=== PATIENT | female | born 1955 | race Caucasian/White ===

== ENCOUNTER 2019-01-15 06:30 | Inpatient (IN) | payer OTHER ==
[2019-01-11 16:39] VITALS: BMI 31.5
[2019-01-15] MEDS ORDERED: SUCCINYLCHOLINE CHLORIDE 200 MG/10 ML VIAL ONE (07:09)
[2019-01-15] MEDS ORDERED: ROCURONIUM BROMIDE 50 MG/5 ML VIAL ONE (07:09)
[2019-01-15] MEDS ORDERED: PROPOFOL 20 ML ONE ×17 (07:09→10:47)
[2019-01-15] MEDS ORDERED: fentaNYL CITRATE 250 MCG/5 ML VIAL ONE (07:09)
[2019-01-15] MEDS ORDERED: HYDROmorphone HCl 2 MG/ML VIAL ONE (07:09)
[2019-01-15] MEDS ORDERED: MIDAZOLAM HCL 2 MG/2 ML SINGLE DOSE VIAL ONE ×2 (07:10→08:36)
[2019-01-15] MEDS ORDERED: ceFAZolin SODIUM 1 GM VIAL ONE ×2 (07:11→17:00)
[2019-01-15] MEDS ORDERED: TRANEXAMIC ACID 1000 MG/10 ML VIAL ONE (07:11)
[2019-01-15] MEDS ORDERED: VANCOMYCIN 1,000 MG VIAL (RESTRICTED TO ID ONLY) ONE (07:11)
[2019-01-15] MEDS ORDERED: ONDANSETRON 4 MG/2 ML VIAL ONE (07:11)
[2019-01-15] MEDS ORDERED: DEXAMETHASONE SOD PHOSPHATE 4 MG/1 ML VIAL ONE ×2 (07:11→08:31)
[2019-01-15] MEDS ORDERED: SODIUM CHLORIDE 0.9% P/F 10 ML VIAL IJ ONE (07:21)
[2019-01-15] MEDS ORDERED: HEPARIN NA (PORCINE) 5,000 UNITS/ML 1ML VIAL ONE (07:27)
[2019-01-15] MEDS ORDERED: BENZOIN TINCTURE SWABSTICK TP ONE (07:27)
[2019-01-15] MEDS ORDERED: THROMBIN (BOVINE) 5,000 UNIT VIAL TP ONE ×2 (07:28→10:11)
[2019-01-15] MEDS ORDERED: ceFAZolin 2 GRAM PREMIX BAG IVPB ONE ×2 (08:30→09:52)
[2019-01-15] MEDS ORDERED: VANCOMYCIN 1,000 MG VIAL (RESTRICTED TO ID ONLY) IVPB ONE ×2 (08:45→09:52)
[2019-01-15] MEDS ORDERED: GELATIN, ABSORBABLE 100 EACH SPONGE TP ONE (10:11)
[2019-01-15] MEDS ORDERED: NEOSTIGMINE METHYLSULFATE 0.5 MG/1 ML - 10 ML MDV ONE (11:18)
[2019-01-15] MEDS ORDERED: GLYCOPYRROLATE 0.2 MG/1 ML VIAL ONE (11:18)
[2019-01-15] MEDS ORDERED: METOPROLOL TARTRATE 5 MG/5 ML VIAL ONE (11:26)
[2019-01-15] MEDS ORDERED: LABETALOL HCL 5 MG/1 ML (100MG/20 ML VIAL) ONE (11:30)
--- NOTE | 2019-01-15 11:41 | PN ---
Progress Note (short form) - Note Progress Note: 63F s/p C3-C4, C4-C5 anterior cervical discectomy and instrumented fusion POD # 0. -Airway observation: In case of emergency, remove anterior cervical spine dressing and pull out running suture; ok to cut suture if needed to decompress hematoma. -Maintain head of bed 45-60 degrees. -Pain medication: per anaesthesia team; oral meds (oxycodone preferred), no ASSISTANT PRINTER FLOOR COVERING ; NO NSAID's. -Admit to ICU post-op. -DVT PPx: -Mechanical only: NIRAJ's, SCD's. -Post-op Ancef x 2 doses. -f/u AM labs. -Incentive spirometry. -PT/OT/Rehab, OOB. -WBAT B/L LE. -PWB B/L UE: 5lbs. -d/c Plunkett catheter at midnight; f/u TOV (8 hours max). -Keep dressing clean & dry. -No heavy lifting (>5 lbs), bending or twisting x 6 months post op. -Start with soft diet; advance diet as tolerated. -B/L UE & LE NV checks. -Care per ICU & Dr. Ramírez (covering medical hospitalist). -Discharge planning: f/u [facility] [place] office 01/26/2019; call for appointment; . Wang Medrano MD (Orthopaedic Surgery).
[2019-01-15] MEDS ORDERED: ONDANSETRON 4 MG/2 ML VIAL IVPUSH PRN ×2 (11:44→12:11)
[2019-01-15] MEDS ORDERED: oxyCODONE HCL 5 MG TABLET PO PRN (11:44)
--- NOTE | 2019-01-15 11:44 | OP ---
Operative Note - Note: Operative Date: 01/15/19 Pre-Operative Diagnosis: 1. C3-C4, C4-C5 intervertebral disc disorder with radiculopathy. 2. Multi-level cervical stenosis with myelopathy Operation: C3-C4, C4-C5 ACDF Implants: Cage: C3-C4 - Fortilink Tetrafuse #7. Cage: C4-C5 - Fortilink Tetrafuse #7. Plate: Precision Spine Slimplicity 27mm, 2-level. Screws: 5 x 4.0x12mm, 1 x 4.5x12mm Post-Operative Diagnosis: Same as Pre-op Surgeon: Wang Medrano Bridge Construction Inspector: Juan Medrano Anesthesiologist/RESEARCH AND DEVELOPMENT TESTER: Piotr Suh Anesthesia: General Specimens Removed: C3-C4, C4-C5 discs Estimated Blood Loss (mls): 20 Fluid Volume Replaced (mls): 1,000 (Crystalloid) Operative Report Dictated: Yes
[2019-01-15] MEDS ORDERED: LACTATED RINGERS SOLUTION 1,000 ML IV SCH ×2 (11:45→12:15)
[2019-01-15] MEDS ORDERED: CLONAZEPAM PO PRN (11:50)
[2019-01-15] MEDS ORDERED: clonazePAM 2 MG TABLET PO PRN (12:03)
[2019-01-15] MEDS ORDERED: clonazePAM 0.5 MG TABLET PO PRN (12:03)
[2019-01-15] MEDS ORDERED: PROMETHAZINE HCL 25 MG/1 ML VIAL IVPB PRN (12:11)
[2019-01-15] MEDS ORDERED: DEXAMETHASONE SOD PHOSPHATE 4 MG/1 ML VIAL IVPUSH PRN (12:11)
[2019-01-15] MEDS ORDERED: HYDROmorphone *PCA* 10MG/50ML DISP.SYRIN PCA SCH (12:15)
--- NOTE | 2019-01-15 14:22 | CONSULT ---
Consultation: REQUESTING PROVIDER: Dr. Medrano CONSULT REQUEST: We have been asked to medically evaluate this patient for ( specify). HISTORY OF PRESENT ILLNESS: 63 y/o female with PMH of HTN, HLD, asthma, psych history, intervertebral disc disorder is POD #0 from c3-c4, c4-5 anterior cervical discectomy and instrumented fusion. per patients family who are bedside, patient has been having worsening neck pain, headaches with associated numbness/tingling (mainly in the left arm) that had been occurring for the past few years but had been getting worse over the past couple of months. She had received multiple steroid injections in the past but this was her first surgical procedure. REVIEW OF SYSTEMS: (limited as patient is still recovering lethargic from anesthesia) CONSTITUTIONAL: Absent: fever, chills, diaphoresis, generalized weakness, malaise, loss of appetite, weight change HEENT: Absent: rhinorrhea, nasal congestion, throat pain, throat swelling, difficulty swallowing, mouth swelling, ear pain, eye pain, visual changes CARDIOVASCULAR: Absent: chest pain, syncope, palpitations, irregular heart rate, lightheadedness , peripheral edema RESPIRATORY: Absent: cough, shortness of breath, dyspnea with exertion, orthopnea, wheezing, stridor, hemoptysis GASTROINTESTINAL: Absent: abdominal pain, abdominal distension, nausea, vomiting, diarrhea, constipation, melena, hematochezia GENITOURINARY: Absent: dysuria, frequency, urgency, hesitancy, hematuria, flank pain, genital pain MUSCULOSKELETAL: Present: neck pain (at surgical site) Absent: myalgia, arthralgia, joint swelling, back pain, SKIN: Absent: rash, itching, pallor HEMATOLOGIC/IMMUNOLOGIC: Absent: easy bleeding, easy bruising, lymphadenopathy, frequent infections ENDOCRINE: Absent: unexplained weight gain, unexplained weight loss, heat intolerance, cold intolerance NEUROLOGIC: Absent: headache, focal weakness or paresthesias, dizziness, unsteady gait, seizure, mental status changes, bladder or bowel incontinence PSYCHIATRIC: Absent: anxiety, depression, suicidal or homicidal ideation, hallucinations. PHYSICAL EXAMINATION Vital Signs - 24 hr 01/15/19 01/15/19 01/15/19 07:06 07:07 12:05 Temperature 98.2 F 97.6 F Pulse Rate 80 83 Respiratory 20 14 Rate Blood Pressure 106/72 145/80 O2 Sat by Pulse 98 92 L Oximetry (%) 01/15/19 01/15/19 01/15/19 12:11 12:20 12:35 Temperature 97.6 F 97.8 F 97.6 F Pulse Rate 83 76 78 Respiratory 14 14 14 Rate Blood Pressure 145/80 131/81 136/79 O2 Sat by Pulse 94 L 94 L 94 L Oximetry (%) 01/15/19 01/15/19 12:49 14:08 Temperature 97.3 F L Pulse Rate 80 85 Respiratory 14 16 Rate Blood Pressure 139/87 126/85 O2 Sat by Pulse 94 L Oximetry (%) GENERAL: slightly somnolent; however opens her eyes; slightly moaning in pain EYES: Pupils equal, round and reactive to light, extraocular movements intact, sclera anicteric, conjunctiva clear. No lid lag. NECK: no JVD; no lymphadenopathy LUNGS: CTA B/L; no rales, rhonchi or wheezing HEART: Regular rate and rhythm, normal S1 and S2 without murmur, rub or gallop. ABDOMEN: Soft, no wincing upon palpation; nondistended ; +BS in all 4 quadrants MUSCULOSKELETAL: Normal range of motion at all joints. No bony deformities or tenderness. No CVA tenderness. UPPER EXTREMITIES: 2+ pulses, warm, well-perfused. No cyanosis. No clubbing. Cap refill <2 seconds. No peripheral edema. LOWER EXTREMITIES: 2+ pulses, warm, well-perfused. No calf tenderness. No peripheral edema. NEUROLOGICAL: Cranial nerves II-XII intact. Normal speech. Normal gait. PSYCHIATRIC: Cooperative. Good eye contact. Appropriate mood and affect. SKIN: Warm, dry, normal turgor, no rashes or lesions noted. Laboratory Results - last 24 hr 01/15/19 06:46 Blood Type B POSITIVE Antibody Screen Negative Active Medications Generic Name Dose Route Start Last Admin Trade Name Freq PRN Reason Stop Dose Admin Albuterol Sulfate 1 puff 01/16/19 10:00 Ventolin Hfa Inhaler - IH Q4H PRN SHORTNESS OF BREATH Atorvastatin Calcium 10 mg 01/15/19 22:00 Lipitor - PO HS DYLAN Clonazepam 1 mg 01/15/19 12:03 Klonopin - PO Q24H PRN DEPRESSION Clonazepam 2 mg 01/15/19 12:03 Klonopin - PO Q24H PRN DEPRESSION Dexamethasone Sodium Phosphate 4 mg 01/15/19 12:11 Decadron Injection - IVPUSH ONCE PRN NAUSEA AND/OR VOMITING Diphenhydramine HCl 12.5 mg 01/15/19 12:11 Benadryl Injection - IVPUSH ONCE PRN FOR ITCHING Fentanyl 50 mcg 01/15/19 12:11 01/15/19 13:47 Sublimaze Injection - IVPUSH 01/16/19 12:10 50 mcg [id number] PRN Administration PAIN-PACU ORDER X 4 DOSES ONLY Cefazolin Sodium 1 gm in 50 mls @ 100 mls/hr 01/15/19 17:00 Ancef 1 Gm Premixed Ivpb - IVPB 01/16/19 01:29 Q8H DYLAN Lactated Ringer's 1,000 mls @ 125 mls/hr 01/15/19 12:15 01/15/19 13:47 Lactated Ringers Solution IV 125 mls/hr ASDIR DYLAN Administration Lisinopril 10 mg 01/16/19 10:00 Prinivil PO DAILY [facility] Non-Formulary Medication 1 each 01/16/19 10:00 Fluticasone/Vilanterol [Breo Ellipta 100-25 Mcg Inh] IH DAILY [facility] Non-Formulary Medication 1 each 01/15/19 22:00 Lifitegrast [Xiidra] OU BID [facility] Ondansetron HCl 4 mg 01/15/19 11:44 Zofran Injection IVPUSH Q6H PRN NAUSEA AND/OR VOMITING Ondansetron HCl 4 mg 01/15/19 12:11 Zofran Injection IVPUSH Q4H PRN NAUSEA AND/OR VOMITING Oxycodone HCl 5 mg 01/15/19 11:44 Roxicodone - PO Q4H PRN PAIN LEVEL 1-5 Oxycodone HCl 10 mg 01/15/19 11:44 Roxicodone - PO Q4H PRN PAIN LEVEL 6-10 Prednisolone Acetate 1 drop 01/16/19 10:00 Pred Forte 1% - OU BID DYLAN Promethazine HCl 12.5 mg 01/15/19 12:11 Phenergan Injection - IVPB 01/16/19 12:10 Q6H PRN NAUSEA AND/OR VOMITING Ranitidine HCl 150 mg 01/15/19 22:00 Zantac - PO HS DYLAN Sertraline HCl 100 mg 01/16/19 10:00 Zoloft - PO DAILY DYLAN Tizanidine HCl 4 mg 01/15/19 22:00 Tizanidine Hcl PO HS DYLAN Tizanidine HCl 2 mg 01/15/19 22:00 Tizanidine Hcl PO BID DYLAN Zolpidem Tartrate 10 mg 01/15/19 22:00 Ambien - PO HS PRN INSOMNIA ASSESSMENT/PLAN: 63 y.o female with PMH of HTN, HLD, asthma, intervertebral disc disorder, psychiatric history is POD #0 from c3-c4, c4-c5 anterior cervical discectomy with instrumented fusion #POD #0 C3-C4, C4-C5 anterior cervical discectomy with instrumented fusion -EBL 20; 1000L crystalloid replacement -fentanyl X4 doses -oxycodone 10mg and 5mg Q4H PRN (AVOID NSAIDS) -Zofran PRN for nausea -Lr @125mls/hr -incentive spirometer -ancef post op X2 doses -SCD's for DVT prophylaxis -remove gorman catheter at midnight -monitor vitals/hemodynamics/pain scale #Cardio HTN; HLD -lisinopril 10mg daily -lipitor 10mg HS #Pulmonary asthma history -albuterol Q4 PRN -restart patients breo/ellipta inhaler -monitor o2 sats #Psych -c/w zoloft 100mg daily -ambien 10mg HS for insomnia F/E/N LR @125mls/hr monitor electrolytes soft diet DVT PPX; SCD's/TEDS Dispo: We will continue to follow the patient. Thank you for this consultative opportunity. Problem List - Problems (1) Asthma Code(s): J45.909 - UNSPECIFIED ASTHMA, UNCOMPLICATED (2) HTN (hypertension) Code(s): I10 - ESSENTIAL (PRIMARY) HYPERTENSION (3) S/P discectomy Code(s): Z98.890 - OTHER SPECIFIED POSTPROCEDURAL STATES Visit type - Emergency Visit Emergency Visit: Yes ED Registration Date: 01/15/19 Care time: The patient presented to the Emergency Department on the above date and was hospitalized for further evaluation of their emergent condition. - New Patient This patient is new to me today: No - Critical Care Critical Care patient: Yes Total Critical Care Time (in minutes): 35 Critical Care Statement: The care of this patient involved high complexity decision making to prevent further life threatening deterioration of the patient 's condition and/or to evaluate & treat vital organ system(s) failure or risk of failure.
[2019-01-15] MEDS: oxyCODONE HCL 5 MG TABLET PO PRN ×2 (16:40→20:20)
[2019-01-15] MEDS ORDERED: CEFAZOLIN 1 GM/D5W 1 GM/50 ML BAG IVPB SCH (17:00)
[2019-01-15] MEDS ORDERED: DEXTROSE 5%-WATER - 50 ML IVPB ONE (17:00)
[2019-01-15] MEDS: CEFAZOLIN 1 GM in DEXTROSE 5%-WATER - 50 ML IVPB SCH (17:06)
--- NOTE | 2019-01-15 17:59 | HP ---
Admitting History and Physical - Admission Chief Complaint: neck pain History Source: Patient Limitations to Obtaining History: No Limitations - Past Medical History DUST MIXER: No: Alzheimer's, CVA, Dementia, Migraine, Multiple Sclerosis, Peripheral Neuropathy, Parkinson's, Seizure, Syncope, TIA, Vertigo, Other Cardiovascular: Yes: HTN Pulmonary: Yes: Asthma, COPD Gastrointestinal: No: Ascites, Cancer, Constipation, Crohn's Disease, Diverticulitis, Diverticulosis, Esophageal Varices, Gastritis, GERD, GI Bleed, Hemorrhoids, Hiatal Hernia, Inflamatory Bowel Disease, Irritable Bowel Disease, Pancreatitis, Peptic Ulcer Disease, Ulcerative Colitis, Other Hepatobiliary: No: Cirrhosis, Cholelithiasis, Cholecystitis, Choledocholithiasis , Hepatitis A, Hepatitis B, Hepatitis C, Other Renal/: No: Renal Failure, Renal Inusuff, BPH, Cancer, Hematuria, Hemodialysis , Neurogenic Bladder, Renal Calculi, UTI, Other Reproductive: No: Ectopic , Endometriosis, Fibroids, PID, Polycystic Ovary Syndrome, Postmenopausal, Other ...: No Heme/Onc: No: Anemia, B12 Deficiency, Bleeding Disorder, Cancer, Current Chemotherapy, Current Radiation Therapy, Hemochromatosis, Hypercoaguable State, Myeloproliferative Synd, Sickle Cell Disease, Sickle Cell Trait, Thrombocytopenia, Other Infectious Disease: No: AIDS, C-Diff, Herpes Zoster, HIV, MRSA, STD's, Tuberculosis, VREF, Other Psych: Yes: Depression Musculoskeletal: Yes: Other (neck pain) Rheumatology: No: Fibromyalgia, Gout, Lupus, Rheumatoid Arthritis, Sarcoidosis, Vasculitis, Other ENT: No: Allergic Rhinitis, Sinusitis, Other Endocrine: No: Dilan's Disease, Malaika's Disease, Diabetes Insipidus, Diabetes Mellitus, Hyperparathyroidism, Hyperthyroidism, Hypothyroidism, Osteopenia, SIADH, Other Dermatology: No: Basal Cell, Cellulitis, Eczema, Melanoma, Psoriasis, Squamous Cell, Other - Past Surgical History Past Surgical History: No: None, AAA Repair, AICD, Amputation, Appendectomy, Arthrosocopy, AV Fistula/Graft, Bariatric Surgery, Breast Biopsy, Bypass, CABG, Carotid Endarterectomy, Cataract Removal, Cholecystectomy, Colectomy, Colonoscopy, Colostomy, Craniotomy, , Cystectomy, Hernia Repair, Hysterectomy, Ileal Conduit, Ileosotomy, Joint Replacement, Kidney Transplant, Laminectomy, Liver Transplant, Mastectomy, Nephrectomy, Oopherectomy, Orchiectomy, Permanent Pacemaker, Prostatectomy, Splenectomy, Stent, Thoracotomy , TURP, Tonsillectomy, Tubal Ligation, Upper Endoscopy, Valve Replacement, Vasectomy, Vein Stripping/Ligation - Advance Directives Advance Directives: No: Living Will, Health Care Proxy, DNR, Organ Donor, Tissue Donor, MOLST - Smoking History Smoking history: Former smoker Have you smoked in the past 12 months: No If you are a former smoker, when did you quit?: 2008 - Alcohol/Substance Use Hx Alcohol Use: No History of Substance Use: denies: None, Cocaine, Heroin, Marijuana, Prescription , Tranquilizers - Social History ADL: Independent Home Medications - Allergies Allergies/Adverse Reactions: Allergies Allergy/AdvReac Type Severity Reaction Status Date / Time No Known Drug Allergies Allergy Verified 01/15/19 07:23 - Home Medications Home Medications: Ambulatory Orders Albuterol Sulfate Inhaler - [Ventolin Hfa Inhaler -] 1 puff IH DAILY 01/11/19 Clonazepam 1 - 2 mg PO PRN PRN 01/11/19 Fluticasone/Vilanterol [Breo Ellipta 100-25 Mcg INH] 1 each IH DAILY 01/11/19 Gabapentin 100 mg PO HS 01/11/19 Hydrocodone/Acetaminophen [Vicodin 5-300 mg Tablet] 1 each PO BID 01/11/19 Lifitegrast [Xiidra] 1 each OU BID 01/11/19 Pravastatin Sodium [Pravachol (Nf)] 40 mg PO HS 01/11/19 Prednisolone 1% Ophthalmic [Pred Forte 1% -] 1 ml OU DAILY 01/11/19 Pregabalin [Lyrica] 100 mg PO DAILY 01/11/19 Ranitidine [Zantac -] 150 mg PO HS 01/11/19 Sennosides [Senna] 2 tab PO DAILY 01/11/19 Sertraline HCl [Zoloft] 100 mg PO DAILY 01/11/19 Tizanidine HCl 4 mg PO HS 01/11/19 Zolpidem Tartrate [Ambien] 10 mg PO HS 01/11/19 Lisinopril 10 mg PO DAILY 01/15/19 Family Disease History - Family Disease History Family Disease History: Diabetes: Mother (HTN), Heart Disease: Grandparent (HI) , Brother (HI), Other: Mother Review of Systems - Review of Systems Constitutional: reports: No Symptoms Eyes: reports: No Symptoms HENT: reports: No Symptoms Neck: reports: No Symptoms, Decreased ROM, Pain on Movement, Tenderness Cardiovascular: reports: No Symptoms Respiratory: reports: No Symptoms Gastrointestinal: reports: No Symptoms Genitourinary: reports: No Symptoms Breasts: reports: No Symptoms Reported Musculoskeletal: reports: No Symptoms Integumentary: reports: No Symptoms Neurological: reports: No Symptoms Endocrine: reports: No Symptoms Hematology/Lymphatic: reports: No Symptoms Psychiatric: reports: No Symptoms, Anxiety, Depression Pain Intensity: 8 Physical Examination Vital Signs: Vital Signs Temperature 97.3 F L 01/15/19 12:49 Pulse Rate 94 H 01/15/19 16:18 Respiratory Rate 16 01/15/19 16:18 Blood Pressure 140/91 01/15/19 16:18 O2 Sat by Pulse Oximetry (%) 94 L 01/15/19 12:49 Findings/Remarks: obese lady in bed. NAD. C/O back pain Constitutional: Yes: Well Nourished, No Distress Eyes: Yes: WNL HENT: Yes: WNL Neck: Yes: Decreased ROM, Tenderness Cardiovascular: Yes: WNL Respiratory: Yes: WNL Gastrointestinal: Yes: WNL ...Rectal Exam: Yes: WNL, Deferred Renal/: Yes: WNL Breast(s): Yes: WNL Musculoskeletal: Yes: WNL Extremities: Yes: WNL Edema: No Peripheral Pulses WNL: Yes Peripheral Pulses: Left Radial: 4+, Right Radial: 4+, Left Doralis Pedis: 4+, Right Dorsalis Pedis: 4+, Left Femoral: 4+, Right Femoral: 4+ Integumentary: Yes: WNL Wound/Incision: Yes: Clean/Dry, Well Approximated Neurological: Yes: WNL ...Motor Strength: WNL Psychiatric: Yes: WNL Assessment/Plan A/P: -63 yo lady with C3-C4, C4-C5 intervertebral disc disorder with radiculopathy. multi level cervical stenosis with myelopathy. S/P C3-C4, C4-C5 ACDF surgical f/u appreciated. cont pain management , incentive spirometry. strict I&O's. -GI, DVT prophylaxis. -H/O asthma, COPD: former smoker. smoking avoidance encouraged. cont bronchodilators. keep O2>92% -cont clonazepam, sertraline for major anxiety and depression. -HTN: on lisinopril, -ID: on cefazolin for empiric coverage. -insomnia: zont zolpidem. -nausea: improved with promethazine, ondasteron -HLD: cont lipitor -PT/OT as tolerated -advance diet as tolerated -assessment and plan discussed with Pt and medical staff.
[2019-01-15] MEDS ORDERED: morphine SULFATE 4 MG/ML VIAL IVPUSH ONE (20:54)
[2019-01-15] MEDS ORDERED: PT OWN MED DRAWER 7, Y5N ONE (21:30)
[2019-01-15] MEDS ORDERED: TIZANIDINE HCL 2 MG TABLET PO SCH ×2 (22:00)
[2019-01-15] MEDS ORDERED: GABAPENTIN 100 MG CAPSULE (FP) PO SCH ×2 (22:00)
[2019-01-15] MEDS: prednisoLONE ACETATE 1% OPHTH SUSP 5 ML BOTTLE OU SCH (22:48)
[2019-01-15] MEDS: ZOLPIDEM TARTRATE 5 MG TABLET PO PRN (22:49)
[2019-01-15] MEDS: RANITIDINE HCL 150 MG TABLET (FP) PO SCH (22:49)
[2019-01-15] MEDS: ATORVASTATIN CA 10 MG TABLET (FP) PO SCH (22:49)
[2019-01-15] MEDS: TIZANIDINE HCL 4 MG TABLET PO SCH (22:49)
--- NOTE | 2019-01-16 | PN ---
Progress Note (short form) - Note Progress Note: Pt complaining of L anterior chest pain with radiation to back. Pt also notes burning pain of her neck. No associated jaw claudication, diaphoresis, shortness of breath. VS: 78, 131/86, 100% SpO2 GEN: Minimal distress, awake, alert Lungs: CTA b/l, shallow inspirations, no wheezing or crackles Cardiac: Reproducible chest pain upon palpation, no murmurs appreciated, RRR Abdomen: soft NT/ND EXT: No edema POD0 anterior approach to C3-C4 vertebral surgery --Ordered ECG stat: NSR, normal axis, no SPENCER/STD, nonpathological q-waves noted in I and aVL, however present on ECG in December 2018. Unchanged. (placed in paper chart) --Likely 2/2 to procedure positioning. Previous dose of Morphine 4mg once not --Will give 10mg Oxy alongside of Ofirmev 1gm now --If CP worsens or signs of ACS develop will order rpt ECG, troponin I, nitrostat Ga Rodriguez, DO - IM PGY-2
[2019-01-16] MEDS ORDERED: ACETAMINOPHEN 1000 MG/100 ML VIAL (NON FORMULARY) IVPB ONE (00:04)
[2019-01-16] MEDS ORDERED: DEXTROSE 5%-WATER - 50 ML IVPB ONE (00:12)
[2019-01-16] MEDS ORDERED: ceFAZolin SODIUM 1 GM VIAL ONE (00:12)
[2019-01-16] MEDS: oxyCODONE HCL 5 MG TABLET PO PRN ×4 (00:34→21:07)
[2019-01-16] MEDS: CEFAZOLIN 1 GM in DEXTROSE 5%-WATER - 50 ML IVPB SCH (00:56)
[2019-01-16] MEDS: prednisoLONE ACETATE 1% OPHTH SUSP 5 ML BOTTLE OU SCH ×2 (00:57→11:17)
[2019-01-16 06:31] LABS: HEMATOCRIT 33.6 % (32.4-45.2); HEMOGLOBIN 11.2 GM/dL (10.7-15.3); MCH 30.3 pg (25.7-33.7); MCHC 33.2 g/dl (32.0-36.0); MEAN CELL VOLUME 91.1 fl (80-96); PLATELET COUNT 214 K/MM3 (134-434); RBC 3.69 M/mm3 (3.60-5.2); RDW 14.8 % (11.6-15.6)
[2019-01-16 06:52] LABS: CALCIUM 8.5 mg/dL (8.5-10.1); CREATININE 0.8 mg/dL (0.55-1.3); MAGNESIUM 2.1 mg/dL (1.8-2.4); POTASSIUM 4.1 mmol/L (3.5-5.1)
[2019-01-16] MEDS ORDERED: ACETAMINOPHEN 500 MG TABLET (FP) PO PRN (07:33)
--- NOTE | 2019-01-16 07:51 | PN ---
Physical Exam: SUBJECTIVE: Patient seen and examined at bedside; overnight patient was in a lot of pain in her neck as well as had slight chest pain that was reproducible upon palpation; she also had trouble sleeping throughout the night and has a slight headache; denies CP/SOB/N/V OBJECTIVE: Vital Signs Period Temp Pulse Resp BP Sys/Rueda Pulse Ox Last 24 Hr 97.3 F-99.3 F 76-94 13-18 100-145/59-91 92-100 GENERAL: The patient is awake, alert, in slight acute distress with pain EYES: PEERLA; EOMI; no scleral icterus . NECK: no JVD; no lymphadenopathy; anterior dressing c/d/ i LUNGS: CTA B/L; no rales, rhonchi or wheezing HEART: Regular rate and rhythm, S1, S2 without murmur, rub or gallop. ABDOMEN: Soft, nontender; nondistended +BS in all 4 quadrants EXTREMITIES: 2+ pulses, warm, well-perfused, no edema, SCD's in place. NEUROLOGICAL: Cranial nerves II through XII grossly intact. LE strength 4/5 B/L ; sensation intact throughout PSYCH: Normal mood, normal affect. SKIN: Warm, dry, normal turgor, no rashes or lesions noted Laboratory Results - last 24 hr 01/16/19 01/16/19 06:15 06:15 WBC 13.0 H RBC 3.69 Hgb 11.2 Hct 33.6 MCV 91.1 MCH 30.3 MCHC 33.2 RDW 14.8 Plt Count 214 MPV 11.0 Sodium 142 Potassium 4.1 Chloride 108 H Carbon Dioxide 28 Anion Gap 6 L BUN 8 Creatinine 0.8 Est GFR (CKD-EPI)AfAm 92.22 Est GFR (CKD-EPI)NonAf 79.57 Random Glucose 91 Calcium 8.5 Magnesium 2.1 Active Medications Generic Name Dose Route Start Last Admin Trade Name Freq PRN Reason Stop Dose Admin Acetaminophen 1,000 mg 01/16/19 07:47 Ofirmev Injection - IVPB Q8H PRN PAIN Albuterol Sulfate 1 puff 01/16/19 10:00 Ventolin Hfa Inhaler - IH Q4H PRN SHORTNESS OF BREATH Atorvastatin Calcium 10 mg 01/15/19 22:00 01/15/19 22:49 Lipitor - PO 10 mg HS DYLAN Administration Clonazepam 1 mg 01/15/19 12:03 Klonopin - PO Q24H PRN DEPRESSION Clonazepam 2 mg 01/15/19 12:03 Klonopin - PO Q24H PRN DEPRESSION Dexamethasone Sodium Phosphate 4 mg 01/15/19 12:11 Decadron Injection - IVPUSH ONCE PRN NAUSEA AND/OR VOMITING Diphenhydramine HCl 12.5 mg 01/15/19 12:11 Benadryl Injection - IVPUSH ONCE PRN FOR ITCHING Docusate Sodium 100 mg 01/16/19 10:00 Colace Liquid - PO BID DYLAN Fentanyl 50 mcg 01/15/19 12:11 01/15/19 14:38 Sublimaze Injection - IVPUSH 01/16/19 12:10 50 mcg [id number] PRN Administration PAIN-PACU ORDER X 4 DOSES ONLY Lactated Ringer's 1,000 mls @ 125 mls/hr 01/15/19 12:15 01/15/19 13:47 Lactated Ringers Solution IV 125 mls/hr ASDIR DYLAN Administration Lisinopril 10 mg 01/16/19 10:00 Prinivil PO DAILY [facility] Non-Formulary Medication 1 each 01/16/19 10:00 Fluticasone/Vilanterol [Breo Ellipta 100-25 Mcg Inh] IH DAILY [facility] Non-Formulary Medication 1 each 01/15/19 22:00 Lifitegrast [Xiidra] OU BID DYLAN Ondansetron HCl 4 mg 01/15/19 11:44 Zofran Injection IVPUSH Q6H PRN NAUSEA AND/OR VOMITING Ondansetron HCl 4 mg 01/15/19 12:11 Zofran Injection IVPUSH Q4H PRN NAUSEA AND/OR VOMITING Oxycodone HCl 5 mg 01/15/19 11:44 Roxicodone - PO Q4H PRN PAIN LEVEL 1-5 Oxycodone HCl 10 mg 01/15/19 11:44 01/16/19 04:41 Roxicodone - PO 10 mg Q4H PRN Administration PAIN LEVEL 6-10 Prednisolone Acetate 1 drop 01/16/19 10:00 Pred Forte 1% - OU DAILY DYLAN Promethazine HCl 12.5 mg 01/15/19 12:11 Phenergan Injection - IVPB 01/16/19 12:10 Q6H PRN NAUSEA AND/OR VOMITING Ranitidine HCl 150 mg 01/15/19 22:00 01/15/19 22:49 Zantac - PO 150 mg HS DYLAN Administration Sertraline HCl 100 mg 01/16/19 10:00 Zoloft - PO DAILY DYLAN Tizanidine HCl 4 mg 01/15/19 22:00 01/15/19 22:49 Tizanidine Hcl PO 4 mg HS DYLAN Administration Zolpidem Tartrate 10 mg 01/15/19 22:00 01/15/19 22:49 Ambien - PO 10 mg HS PRN Administration INSOMNIA ASSESSMENT/PLAN: 63 y.o female with PMH of HTN, HLD, asthma, intervertebral disc disorder, psychiatric history is POD #0 from c3-c4, c4-c5 anterior cervical discectomy with instrumented fusion #POD #1 C3-C4, C4-C5 anterior cervical discectomy with instrumented fusion -oxycodone 10mg and 5mg Q4H PRN (AVOID NSAIDS); will try and talk to dr. cadena/ anesthesia regarding possible SURGERY CONSULTANT -Zofran PRN for nausea -Lr @125mls/hr -incentive spirometer -SCD's for DVT prophylaxis -monitor vitals/hemodynamics/pain scale -PT: f/u reading for repeat c spine XRAY this AM #Cardio HTN; HLD -lisinopril 10mg daily -lipitor 10mg HS #Pulmonary asthma history -albuterol Q4 PRN -restart patients breo/ellipta inhaler -monitor o2 sats #Psych -c/w zoloft 100mg daily -ambien 10mg HS for insomnia F/E/N LR @125mls/hr monitor electrolytes soft diet Problem List - Problems (1) Cervical disc disease with myelopathy Code(s): M50.00 - CERVICAL DISC DISORDER WITH MYELOPATHY, UNSP CERVICAL REGION (2) S/P discectomy Code(s): Z98.890 - OTHER SPECIFIED POSTPROCEDURAL STATES (3) HTN (hypertension) Code(s): I10 - ESSENTIAL (PRIMARY) HYPERTENSION (4) Asthma Code(s): J45.909 - UNSPECIFIED ASTHMA, UNCOMPLICATED Visit type - Emergency Visit Emergency Visit: Yes ED Registration Date: 01/15/19 Care time: The patient presented to the Emergency Department on the above date and was hospitalized for further evaluation of their emergent condition. - New Patient This patient is new to me today: No - Critical Care Critical Care patient: Yes Total Critical Care Time (in minutes): 35 Critical Care Statement: The care of this patient involved high complexity decision making to prevent further life threatening deterioration of the patient 's condition and/or to evaluate & treat vital organ system(s) failure or risk of failure.
[2019-01-16] MEDS: ACETAMINOPHEN 1000 MG/100 ML VIAL (NON FORMULARY) IVPB PRN ×2 (08:02→21:07)
--- NOTE | 2019-01-16 09:58 | EKG ---
Test Reason : Blood Pressure : / mmHG Vent. Rate : 079 BPM Atrial Rate : 079 BPM P-R Int : 126 ms QRS Dur : 072 ms QT Int : 380 ms P-R-T Axes : 051 021 047 degrees QTc Int : 435 ms POOR DATA QUALITY, INTERPRETATION MAY BE ADVERSELY AFFECTED SINUS RHYTHM WITH PREMATURE SUPRAVENTRICULAR COMPLEXES OTHERWISE NORMAL ECG NO PREVIOUS ECGS AVAILABLE Confirmed by MD GINA, LAURA ([id number]) on 01/16/2019 9:58:29 AM Referred By: SAL Confirmed By:LAURA FUENTES MD
[2019-01-16] MEDS ORDERED: DOCUSATE SODIUM 100 MG CAPSULE (FP) PO SCH (10:00)
[2019-01-16] MEDS ORDERED: PREGABALIN 100 MG CAPSULE PO SCH (10:00)
[2019-01-16] MEDS ORDERED: ALBUTEROL SO4 8 GM HFA INHALER IH PRN (10:00)
[2019-01-16] MEDS ORDERED: HYDROmorphone HCl 2 MG/ML VIAL IVPUSH ONE ×3 (10:00→23:43)
[2019-01-16] MEDS ORDERED: prednisoLONE ACETATE 1% OPHTH SUSP 5 ML BOTTLE OU SCH (10:00)
[2019-01-16] MEDS ORDERED: DOCUSATE NA 100 MG/10 ML UNIT-DOSE CUPS PO PRN (10:00)
[2019-01-16] MEDS: LISINOPRIL 10 MG TABLET (FP) PO SCH (11:06)
[2019-01-16] MEDS: DOCUSATE NA 100 MG/10 ML UNIT-DOSE CUPS PO SCH ×2 (11:06→21:08)
[2019-01-16] MEDS: SERTRALINE HCL 50 MG TABLET (FP) PO SCH (11:06)
--- NOTE | 2019-01-16 11:51 | PN ---
Teaching Attending Note Name of Resident: Latonya Ham ATTENDING PHYSICIAN STATEMENT I saw and evaluated the patient. I reviewed the resident's note and discussed the case with the resident. I agree with the resident's findings and plan as documented. SUBJECTIVE Patient seen and examined in the ICU. Awake and alert. Reports significant post-operative pain. No CP or SOB. Intake & Output 01/13/19 01/14/19 01/15/19 01/16/19 23:59 23:59 23:59 23:59 Intake Total 1250 1770 Output Total 250 1000 Balance 1000 770 Weight 185 lb 14.4 oz Last Vital Signs Temp Pulse Resp BP Pulse Ox 99.3 F 82 23 H 112/65 96 01/16/19 06:00 01/16/19 08:00 01/16/19 08:00 01/16/19 08:00 01/16/19 07:35 Active Medications Acetaminophen (Ofirmev Injection -) 1,000 mg IVPB Q8H PRN PRN Reason: PAIN 1-5;IF OXYCODONE NT WORK Last Admin: 01/16/19 08:02 Dose: 1,000 mg Albuterol Sulfate (Ventolin Hfa Inhaler -) 1 puff IH Q4H PRN PRN Reason: SHORTNESS OF BREATH Atorvastatin Calcium (Lipitor -) 10 mg PO HS [facility] Last Admin: 01/15/19 22:49 Dose: 10 mg Clonazepam (Klonopin -) 1 mg PO Q24H PRN PRN Reason: DEPRESSION Clonazepam (Klonopin -) 2 mg PO Q24H PRN PRN Reason: DEPRESSION Dexamethasone Sodium Phosphate (Decadron Injection -) 4 mg IVPUSH ONCE PRN PRN Reason: NAUSEA AND/OR VOMITING Diphenhydramine HCl (Benadryl Injection -) 12.5 mg IVPUSH ONCE PRN PRN Reason: FOR ITCHING Docusate Sodium (Colace Liquid -) 100 mg PO BID [facility] Last Admin: 01/16/19 11:06 Dose: 100 mg Fentanyl (Sublimaze Injection -) 50 mcg IVPUSH [id number] PRN PRN Reason: PAIN-PACU ORDER X 4 DOSES ONLY Stop: 01/16/19 12:10 Last Admin: 01/15/19 14:38 Dose: 50 mcg Lactated Ringer's (Lactated Ringers Solution) 1,000 mls @ 125 mls/hr IV ASDIR [facility], [facility] Last Admin: 01/15/19 13:47 Dose: 125 mls/hr Lisinopril (Prinivil) 10 mg PO DAILY [facility] Last Admin: 01/16/19 11:06 Dose: 10 mg Non-Formulary Medication (Fluticasone/Vilanterol [Breo Ellipta 100-25 Mcg Inh]) 1 each IH DAILY [facility] Non-Formulary Medication (Lifitegrast [Xiidra]) 1 each OU BID [facility] Ondansetron HCl (Zofran Injection) 4 mg IVPUSH Q6H PRN PRN Reason: NAUSEA AND/OR VOMITING Ondansetron HCl (Zofran Injection) 4 mg IVPUSH Q4H PRN PRN Reason: NAUSEA AND/OR VOMITING Oxycodone HCl (Roxicodone -) 5 mg PO Q4H PRN PRN Reason: PAIN LEVEL 1-5 Oxycodone HCl (Roxicodone -) 10 mg PO Q4H PRN PRN Reason: PAIN LEVEL 6-10 Last Admin: 01/16/19 04:41 Dose: 10 mg Prednisolone Acetate (Pred Forte 1% -) 1 drop OU DAILY [facility] Last Admin: 01/16/19 11:17 Dose: 1 drop Promethazine HCl (Phenergan Injection -) 12.5 mg IVPB Q6H PRN PRN Reason: NAUSEA AND/OR VOMITING Stop: 01/16/19 12:10 Ranitidine HCl (Zantac -) 150 mg PO HS [facility] Last Admin: 01/15/19 22:49 Dose: 150 mg Sertraline HCl (Zoloft -) 100 mg PO DAILY [facility] Last Admin: 01/16/19 11:06 Dose: 100 mg Tizanidine HCl (Tizanidine Hcl) 4 mg PO HS [facility] Last Admin: 01/15/19 22:49 Dose: 4 mg Zolpidem Tartrate (Ambien -) 10 mg PO HS PRN PRN Reason: INSOMNIA Last Admin: 01/15/19 22:49 Dose: 10 mg Constitutional: Yes: Awake and alert, uncomfortable due to pain Eyes: Yes: WNL HENT: Yes: WNL Neck: Yes: Decreased ROM, Tenderness Cardiovascular: Yes: WNL Respiratory: Yes: WNL Gastrointestinal: Yes: WNL ...Rectal Exam: Yes: WNL, Deferred Renal/: Yes: WNL Breast(s): Yes: WNL Musculoskeletal: Yes: WNL Extremities: Yes: WNL Edema: No Peripheral Pulses WNL: Yes Peripheral Pulses: Left Radial: 4+, Right Radial: 4+, Left Doralis Pedis: 4+, Right Dorsalis Pedis: 4+, Left Femoral: 4+, Right Femoral: 4+ Integumentary: Yes: WNL Wound/Incision: Yes: Clean/Dry, Well Approximated Neurological: Yes: WNL ...Motor Strength: WNL Psychiatric: Yes: WNL Assessment/Plan POD #1 Cage: C3-C4 - Fortilink Tetrafuse #7. Cage: C4-C5 - Fortilink Tetrafuse #7. Plate: Precision Spine Slimplicity 27mm, 2-level. Screws: 5 x 4.0x12mm, 1 x 4.5x12mm C3-C4, C4-C5 intervertebral disc disorder with radiculopathy. Multi level cervical stenosis with myelopathy. Radiographic imaging to be obtained Anesthesia follow up for pain management suggestions, can give MS and Tylenol Incentive Spirometry O2 as needed Mechanical VTE prophylaxis PO as tolerated Clonazepam, sertraline for major anxiety and depression Floor when OK with Ortho Dr Cooper
--- NOTE | 2019-01-16 13:28 | OP ---
DATE OF OPERATION: 01/15/2019 SURGEON: Wang Medrano MD BLOCKER POLISHING: Juan Medrano MD PREOPERATIVE DIAGNOSIS: C3-4 disk prolapse with cervical spondylogenic myelopathy and right side trapezial axial back pain. POSTOPERATIVE DIAGNOSIS: C3-4 and C4-5 disk prolapse and associated C6-7 prolapse which we elected to leave alone. OPERATION PERFORMED: 1. Proposed C3-4 anterior cervical diskectomy and fusion, changed to a C3-4 anterior cervical diskectomy and fusion, and a C4-5 anterior cervical diskectomy and fusion and additional level added. 2. Partial corpectomy, C3; partial corpectomy, C4; and partial corpectomy, C5. 3. Insertion of interbody biomechanical device (Fortilink cage) at C3-4 and C4- 5. 4. Anterior arthrodesis, C3-4 and C4-5. 5. Anterior instrumentation and plating, C3-4 and C5. ANESTHESIA: General. ANTIBIOTICS GIVEN: 2 g Kefzol, 1 g vancomycin, 10 mg Decadron preoperative. Neuromonitoring as well as biplane fluoroscopy utilized. INDICATIONS: This patient was assessed for cervical spondylogenic myelopathy with multiple level disk prolapses noted, and discussion in the office was that, to the effect that I had discussed the C3-4 disk prolapse and anterior cervical diskectomy and fusion on her, that we would make an assessment of the status of the disk at C4-5 as well to attend to the C6-7 disk, which revealed presence of tight stenosis as well would be dealt with on another occasion, as it was too extensive to be able to achieve this through 1 simple transverse incision of the cervical spine. Because of the appropriately found osteophyte at C4-5 ridging, combined with what was seen on the MRI and even the lateral fluoroscopic x-rays, and the retrolisthesis seen of C4 and C5 on this x-ray today, I elected to go ahead and attend to the C4-5 disk as well, simply based on the fact that dealing with C3-4 would result in recurrent surgery in short due course. OPERATION DETAILS: The patient was correctly identified, brought in the operating room, placed supine in the operating room table. Bolsters placed behind the scapulae, the neck extended, a papoose positioner applied. Neuromonitoring set up appropriately. All bony points padded appropriately. Imaging was available for intraoperative evaluation. Timeout was called. Preparation of skin was with Betadine scrub solution, wiped off with alcohol, and DuraPrep applied. A window drape was applied. After the appropriate draping, and incision was made at approximately cricothyroid interval. This was centered over the C4-5 disk. The dissection was taken through skin and subcutaneous tissues, the investing layer of fascia. The investing layer of fascia was split longitudinally proximally and distally. This gave easy access to the soft tissues of the neck. The tissues lateral to the larynx and pharynx were retracted medially for the viscera and laterally for the carotid sheath and vessels. This enabled easy access to the anterior column of the vertebral canal. Using a bent 18-gauge needle, the appropriate disk of C4-5 was entered, and a lateral fluoroscopic x-ray revealed and confirmed the presence of the correct level for surgery. Once that had been performed, a peanut was utilized to clear the space of the prevertebral fascia. Bovie dealt with small bleeders. The longus colli was retracted off the bone bed from C3, 4, and 5, to give easy access for the teeth of retractors to be placed within the confines of the muscle belly. Once that had been achieved, a Tingley pin was placed in the C4 vertebral body. A repeat lateral fluoroscopic x -ray was taken to confirm its position, that is, in the C4 vertebral body appropriately. The disks above and below needed to be attended to. Using a model, each disk was attended in exactly the same manner. Under light microscopy, an annulectomy with a unipolar Bovie was utilized to excise the peripheral margins of the annulus. The disk was then scooped out with a small curette. Using a yeny-tip bur, a rectangular cavity was created. The cavity all the way down to the posterior longitudinal ligament and the theca itself. This gave easy access to the actual dura. Using Kerrison 1, 1.5- and 2-mm Kerrisons, all the soft tissue elements were removed off the thecal elements, but theca bulged significantly, and the appropriate distractor part was utilized first with the distraction across C4-5. The inferior pin of the Tingley was seated in C5. It was initially to remove bone from the vertebral body of C4 and C5, thus a partial corpectomy had been performed in order to achieve a complete consolidated decompression. A Fortilink size 7 cage packed with bone morphogenic putty was inserted. The exact same procedure was performed at the C3-4 disk level, the only difference being that the partial corpectomy of C3 was also performed. The disk material was removed off the endplates, the endplates again flattened into a rectangular shape with the [place] yeny-tip bur; and Kerrison 1, and 1.5- and 2-mm Kerrisons utilized to remove all the soft tissue impinging up against the anterior aspect of the theca. Complete decompression achieved, and there was virtually no residual bulging of the thecal elements and cord into the interspace. Again a size 7 Fortilink cage with bone putty was inserted. Once this had been completed, it must be noted that each cage was seated with the Tingley pins in tension, distracting the disk space. The cage was seated and the traction device removed, thus collapsing the bone onto the actual cages. Once this had been completed, a size 27-mm plate was inserted, 12-mm screws were inserted into the bone bed at C4, 5, and 6 performed. The wounds were thoroughly lavaged. Verification with lateral fluoroscopic x- rays and AP fluoroscopic x-ray revealed excellent seating of the implants. The intraoperative correction of the thecal vertebral canal brought about a marked improvement in the right biceps and trapezius muscle. Closure, after thorough lavage and hemostasis fully achieved, with investing layer of fascia 2-0 Vicryl, subcutaneous 2-0 Vicryl, skin 3-0 Monocryl, with Steri-Strips. Operation went extremely well, no complications. MD GLORIA Bender/[id number] MTDD
--- NOTE | 2019-01-16 13:30 | PN ---
HC Provider Note Provider Note: Anesthesia Post-op Pt found in bed awake alert complaining of some pain. Denies n/v, no SOB, gorman remains in place, pt has not ambulated Improved pain management would encourage pt mobility VSS No apparent anesthesia complications. Clemente Suh.
--- NOTE | 2019-01-16 14:44 | PN ---
Progress Note, Physician - Current Medication List Current Medications: Active Medications Acetaminophen (Ofirmev Injection -) 1,000 mg IVPB Q8H PRN PRN Reason: PAIN 1-5;IF OXYCODONE NT WORK Last Admin: 01/16/19 08:02 Dose: 1,000 mg Albuterol Sulfate (Ventolin Hfa Inhaler -) 1 puff IH Q4H PRN PRN Reason: SHORTNESS OF BREATH Atorvastatin Calcium (Lipitor -) 10 mg PO HS [facility] Last Admin: 01/15/19 22:49 Dose: 10 mg Clonazepam (Klonopin -) 1 mg PO Q24H PRN PRN Reason: DEPRESSION Clonazepam (Klonopin -) 2 mg PO Q24H PRN PRN Reason: DEPRESSION Dexamethasone Sodium Phosphate (Decadron Injection -) 4 mg IVPUSH ONCE PRN PRN Reason: NAUSEA AND/OR VOMITING Diphenhydramine HCl (Benadryl Injection -) 12.5 mg IVPUSH ONCE PRN PRN Reason: FOR ITCHING Docusate Sodium (Colace Liquid -) 100 mg PO BID [facility] Last Admin: 01/16/19 11:06 Dose: 100 mg Lactated Ringer's (Lactated Ringers Solution) 1,000 mls @ 125 mls/hr IV ASDIR [facility] Last Admin: 01/15/19 13:47 Dose: 125 mls/hr Lisinopril (Prinivil) 10 mg PO DAILY [facility] Last Admin: 01/16/19 11:06 Dose: 10 mg Non-Formulary Medication (Fluticasone/Vilanterol [Breo Ellipta 100-25 Mcg Inh]) 1 each IH DAILY [facility] Non-Formulary Medication (Lifitegrast [Xiidra]) 1 each OU BID [facility] Ondansetron HCl (Zofran Injection) 4 mg IVPUSH Q6H PRN PRN Reason: NAUSEA AND/OR VOMITING Ondansetron HCl (Zofran Injection) 4 mg IVPUSH Q4H PRN PRN Reason: NAUSEA AND/OR VOMITING Oxycodone HCl (Roxicodone -) 5 mg PO Q4H PRN PRN Reason: PAIN LEVEL 1-5 Oxycodone HCl (Roxicodone -) 10 mg PO Q4H PRN PRN Reason: PAIN LEVEL 6-10 Last Admin: 01/16/19 04:41 Dose: 10 mg Prednisolone Acetate (Pred Forte 1% -) 1 drop OU DAILY [facility] Last Admin: 01/16/19 11:17 Dose: 1 drop Ranitidine HCl (Zantac -) 150 mg PO HS [facility] Last Admin: 01/15/19 22:49 Dose: 150 mg Sertraline HCl (Zoloft -) 100 mg PO DAILY [facility] Last Admin: 01/16/19 11:06 Dose: 100 mg Tizanidine HCl (Tizanidine Hcl) 4 mg PO HS [facility] Last Admin: 01/15/19 22:49 Dose: 4 mg Zolpidem Tartrate (Ambien -) 10 mg PO HS PRN PRN Reason: INSOMNIA Last Admin: 01/15/19 22:49 Dose: 10 mg - Objective Vital Signs: Vital Signs Temperature 99.3 F 01/16/19 10:40 Pulse Rate 80 01/16/19 12:00 Respiratory Rate 14 01/16/19 12:00 Blood Pressure 107/83 01/16/19 12:00 O2 Sat by Pulse Oximetry (%) 96 01/16/19 10:00 Constitutional: Yes: Well Nourished, No Distress Eyes: Yes: WNL HENT: Yes: WNL Neck: Yes: WNL, Other Cardiovascular: Yes: WNL Respiratory: Yes: WNL Gastrointestinal: Yes: WNL ...Rectal Exam: Yes: WNL Genitourinary: Yes: WNL Breast(s): Yes: WNL Musculoskeletal: Yes: WNL Extremities: Yes: WNL Edema: No Peripheral Pulses WNL: Yes Integumentary: Yes: WNL Wound/Incision: Yes: Clean/Dry, Sutures Intact Neurological: Yes: WNL ...Motor Strength: WNL Psychiatric: Yes: WNL Labs: CBC, BMP 01/16/19 06:15 01/16/19 06:15 Assessment/Plan A/P: -63 yo lady with C3-C4, C4-C5 intervertebral disc disorder with radiculopathy. multi level cervical stenosis with myelopathy. S/P C3-C4, C4-C5 ACDF surgical f/u appreciated. cont pain management , incentive spirometry. strict I&O's. -leucocytosis: reactive to pain. will monitor for now. -GI, DVT prophylaxis. -H/O asthma, COPD: former smoker. smoking avoidance encouraged. cont bronchodilators. keep O2>92% -cont clonazepam, sertraline for major anxiety and depression. -HTN: on lisinopril, -ID: on cefazolin for empiric coverage. -insomnia: zont zolpidem. -nausea: improved with promethazine, ondasteron -HLD: cont lipitor -PT/OT as tolerated -advance diet as tolerated -assessment and plan discussed with Pt and medical staff. Pt can be downgraded to medical floor
--- NOTE | 2019-01-16 17:17 | PATH ---
Surgical Pathology Report Patient Name: SHEMAR GARCIA [facility]. Rec. #: [id number] /Age/Gender: 1955 (Age: 63) / F Account: [id number] Location: ICU [facility] Taken: 01/15/2019 Received: 01/15/2019 Reported: 01/16/2019 Physicians: Wang Medrano M.D. Specimen(s) Received C3 C4 C5 DISC Clinical History Cervical disc disorder Final Diagnosis C3/C4/C5 DISC, LAMINECTOMY: FRAGMENTS OF CARTILAGINOUS TISSUE AND SCANTY BONE SHOWING DEGENERATIVE CHANGE. Electronically Signed Sarah Dawkins M.D. Gross Description Received in formalin labeled "C3-C4-C5 disc," is a 2.0 x 1.6 x 0.3 cm aggregate of laws fragments of fibrocartilaginous tissue. The specimen is entirely submitted in one cassette. /01/15/2019 saudi01/15/2019
[2019-01-16 17:54] LABS: EPI CELLS 0.3 /HPF (0-5/HPF); HYALINE CASTS 6 /lpf (0-8); URINE APPEARANCE CLEAR; URINE BACTERIA 1.4 /hpf (NEGATIVE); URINE BILIRUBIN NEGATIVE (NEGATIVE); URINE COLOR YELLOW; URINE GLUCOSE (UA) NEGATIVE (NEGATIVE); URINE KETONE NEGATIVE (NEGATIVE); URINE LEUK ESTERASE NEGATIVE (NEGATIVE); URINE NITRITE NEGATIVE (NEGATIVE); URINE PROTEIN NEGATIVE (NEGATIVE); URINE RBC 8 /hpf (0-4); URINE UROBILINOGEN 0.2 mg/dL (0.2-1.0); URINE WBC 3 /hpf (0-5)
[2019-01-16] MEDS: RANITIDINE HCL 150 MG TABLET (FP) PO SCH (21:06)
[2019-01-16] MEDS: ATORVASTATIN CA 10 MG TABLET (FP) PO SCH (21:06)
[2019-01-16] MEDS: ZOLPIDEM TARTRATE 5 MG TABLET PO PRN (21:06)
[2019-01-16] MEDS ORDERED: PT OWN MED DRAWER 7, Y5N ONE (21:14)
[2019-01-16] MEDS: TIZANIDINE HCL 4 MG TABLET PO SCH (22:00)
[2019-01-17] MEDS ORDERED: SODIUM CHLORIDE 500 ML IV STA ×2 (02:33→11:15)
[2019-01-17 06:31] LABS: HEMOGLOBIN 12.3 GM/dL (10.7-15.3); MCH 30.4 pg (25.7-33.7); MCHC 33.1 g/dl (32.0-36.0); MEAN CELL VOLUME 91.8 fl (80-96); MEAN PLT VOLUME 10.7 fl (7.5-11.1); PLATELET COUNT 214 K/MM3 (134-434); RBC 4.03 M/mm3 (3.60-5.2); RDW 15.1 % (11.6-15.6); WHITE BLOOD COUNT 10.6 K/mm3 (4.0-10.0)
[2019-01-17 06:49] LABS: CALCIUM 8.6 mg/dL (8.5-10.1); CREATININE 0.8 mg/dL (0.55-1.3); PHOSPHOROUS 4.4 mg/dL (2.5-4.9); POTASSIUM 3.9 mmol/L (3.5-5.1)
[2019-01-17] MEDS: oxyCODONE HCL 5 MG TABLET PO PRN ×3 (06:56→22:17)
[2019-01-17] MEDS: ACETAMINOPHEN 1000 MG/100 ML VIAL (NON FORMULARY) IVPB PRN (07:47)
--- NOTE | 2019-01-17 07:56 | PN ---
Physical Exam: SUBJECTIVE: Patient seen and examined at bedside; patient was in a lot of pain overnight given 1mg of dilaudid in addition had slightly low BP (responsive to fluids); patient is still in a lot of pain this AM; denies CP/SOB/N/V OBJECTIVE: Vital Signs Period Temp Pulse Resp BP Sys/Rueda Pulse Ox Last 24 Hr 98.0 F-99.7 F 70-87 10-23 87-129/56-91 93-96 GENERAL: The patient is awake, alert, and fully oriented, in slight acute distress from pain EYES: PEERLA: EOMI no sclerlal icterus . NECK: no JVD; no lymphadenopathy; anterior neck dressing c/d/i LUNGS: CTA B/L; no rales, rhonchi or wheezing HEART: Regular rate and rhythm, S1, S2 without murmur, rub or gallop. ABDOMEN: soft; NT/ND +BS in all 4 quadrants EXTREMITIES: 2+ pulses, warm, well-perfused, no edema, SCDS in place. NEUROLOGICAL: strenght 4/5 B/L LE; 5/5 B/L UE; sensation intact throughout PSYCH: Normal mood, normal affect. SKIN: Warm, dry, normal turgor, no rashes or lesions noted Laboratory Results - last 24 hr 01/16/19 01/16/19 01/17/19 12:58 17:13 05:46 WBC RBC Hgb Hct MCV MCH MCHC RDW Plt Count MPV Sodium 142 Potassium 3.9 Chloride 104 Carbon Dioxide 31 Anion Gap 7 L BUN 8 Creatinine 0.8 Est GFR (CKD-EPI)AfAm 92.22 Est GFR (CKD-EPI)NonAf 79.57 Random Glucose 84 Calcium 8.6 Phosphorus 4.4 Magnesium 2.0 Urine Color Yellow Urine Appearance Clear Urine pH 6.0 Ur Specific [place] 1.013 Urine Protein Negative Urine Glucose (UA) Negative Urine Ketones Negative Urine Blood Trace Urine Nitrite Negative Urine Bilirubin Negative Urine Urobilinogen 0.2 Ur Leukocyte Esterase Negative Urine WBC (Auto) 3 Urine RBC (Auto) 8 Urine Casts (Auto) 6 U Epithel Cells (Auto) 0.3 Urine Bacteria (Auto) 1.4 Blood Type B POSITIVE 01/17/19 06:00 WBC 10.6 H RBC 4.03 Hgb 12.3 Hct 37.0 MCV 91.8 MCH 30.4 MCHC 33.1 RDW 15.1 Plt Count 214 MPV 10.7 Sodium Potassium Chloride Carbon Dioxide Anion Gap BUN Creatinine Est GFR (CKD-EPI)AfAm Est GFR (CKD-EPI)NonAf Random Glucose Calcium Phosphorus Magnesium Urine Color Urine Appearance Urine pH Ur Specific [place] Urine Protein Urine Glucose (UA) Urine Ketones Urine Blood Urine Nitrite Urine Bilirubin Urine Urobilinogen Ur Leukocyte Esterase Urine WBC (Auto) Urine RBC (Auto) Urine Casts (Auto) U Epithel Cells (Auto) Urine Bacteria (Auto) Blood Type Active Medications Generic Name Dose Route Start Last Admin Trade Name Freq PRN Reason Stop Dose Admin Acetaminophen 1,000 mg 01/16/19 07:47 01/17/19 07:47 Ofirmev Injection - IVPB 1,000 mg Q8H PRN Administration PAIN 1-5;IF OXYCODONE NT WORK Albuterol Sulfate 1 puff 01/16/19 10:00 Ventolin Hfa Inhaler - IH Q4H PRN SHORTNESS OF BREATH Atorvastatin Calcium 10 mg 01/15/19 22:00 01/16/19 21:06 Lipitor - PO 10 mg HS [facility] Administration Clonazepam 1 mg 01/15/19 12:03 Klonopin - PO Q24H PRN DEPRESSION Clonazepam 2 mg 01/15/19 12:03 01/17/19 07:47 Klonopin - PO 2 mg Q24H PRN Administration DEPRESSION Dexamethasone Sodium Phosphate 4 mg 01/15/19 12:11 Decadron Injection - IVPUSH ONCE PRN NAUSEA AND/OR VOMITING Diphenhydramine HCl 12.5 mg 01/15/19 12:11 Benadryl Injection - IVPUSH ONCE PRN FOR ITCHING Docusate Sodium 100 mg 01/16/19 10:00 01/16/19 21:08 Colace Liquid - PO 100 mg BID [facility] Administration Lisinopril 10 mg 01/16/19 10:00 01/16/19 11:06 Prinivil PO 10 mg DAILY [facility] Administration Non-Formulary Medication 1 each 01/16/19 10:00 Fluticasone/Vilanterol [Breo Ellipta 100-25 Mcg Inh] IH DAILY [facility] Non-Formulary Medication 1 each 01/15/19 22:00 Lifitegrast [Xiidra] OU BID [facility] Ondansetron HCl 4 mg 01/15/19 11:44 Zofran Injection IVPUSH Q6H PRN NAUSEA AND/OR VOMITING Ondansetron HCl 4 mg 01/15/19 12:11 Zofran Injection IVPUSH Q4H PRN NAUSEA AND/OR VOMITING Oxycodone HCl 5 mg 01/15/19 11:44 01/17/19 07:42 Roxicodone - PO 5 mg Q4H PRN Administration PAIN LEVEL 1-5 Oxycodone HCl 10 mg 01/15/19 11:44 01/17/19 06:56 Roxicodone - PO 10 mg Q4H PRN Administration PAIN LEVEL 6-10 Prednisolone Acetate 1 drop 01/16/19 10:00 01/16/19 11:17 Pred Forte 1% - OU 1 drop DAILY [facility] Administration Ranitidine HCl 150 mg 01/15/19 22:00 01/16/19 21:06 Zantac - PO 150 mg HS [facility] Administration Sertraline HCl 100 mg 01/16/19 10:00 01/16/19 11:06 Zoloft - PO 100 mg DAILY [facility] Administration Tizanidine HCl 4 mg 01/15/19 22:00 01/16/19 22:00 Tizanidine Hcl PO 4 mg HS [facility] Administration Zolpidem Tartrate 10 mg 01/15/19 22:00 01/16/19 21:06 Ambien - PO 10 mg HS PRN Administration INSOMNIA ASSESSMENT/PLAN: 63 y.o female with PMH of HTN, HLD, asthma, intervertebral disc disorder, psychiatric history is POD #2 from C3-C4, C4-C5 anterior cervical discectomy with instrumented fusion #POD #2 C3-C4, C4-C5 anterior cervical discectomy with instrumented fusion -oxycodone 10mg and 5mg Q4H PRN (AVOID NSAIDS); -Zofran PRN for nausea -incentive spirometer -SCD's for DVT prophylaxis -monitor vitals/hemodynamics/pain scale -PT; #Cardio patient was midlly hypotensive with MAP at 71; will give another 500 cc bolus of NS HTN; HLD -lisinopril 10mg daily -lipitor 10mg HS -monitor hemodynamics #Pulmonary asthma history -albuterol Q4 PRN -restart patients breo/ellipta inhaler -monitor o2 sats #Psych -c/w zoloft 100mg daily -ambien 10mg HS for insomnia -klonopin F/E/N giving another 500 cc bolus of NS monitor electrolytes soft diet Problem List - Problems (1) Cervical disc disease with myelopathy Code(s): M50.00 - CERVICAL DISC DISORDER WITH MYELOPATHY, UNSP CERVICAL REGION (2) S/P discectomy Code(s): Z98.890 - OTHER SPECIFIED POSTPROCEDURAL STATES (3) HTN (hypertension) Code(s): I10 - ESSENTIAL (PRIMARY) HYPERTENSION (4) Asthma Code(s): J45.909 - UNSPECIFIED ASTHMA, UNCOMPLICATED Visit type - Emergency Visit Emergency Visit: Yes ED Registration Date: 01/15/19 Care time: The patient presented to the Emergency Department on the above date and was hospitalized for further evaluation of their emergent condition. - New Patient This patient is new to me today: No - Critical Care Critical Care patient: Yes Total Critical Care Time (in minutes): 35 Critical Care Statement: The care of this patient involved high complexity decision making to prevent further life threatening deterioration of the patient 's condition and/or to evaluate & treat vital organ system(s) failure or risk of failure.
[2019-01-17] MEDS: DOCUSATE NA 100 MG/10 ML UNIT-DOSE CUPS PO SCH ×2 (09:05→22:19)
[2019-01-17] MEDS: LISINOPRIL 10 MG TABLET (FP) PO SCH (09:05)
[2019-01-17] MEDS: SERTRALINE HCL 50 MG TABLET (FP) PO SCH (09:05)
[2019-01-17] MEDS: prednisoLONE ACETATE 1% OPHTH SUSP 5 ML BOTTLE OU SCH (09:07)
--- NOTE | 2019-01-17 11:46 | PN ---
Teaching Attending Note Name of Resident: Latonya Ham ATTENDING PHYSICIAN STATEMENT I saw and evaluated the patient. I reviewed the resident's note and discussed the case with the resident. I agree with the resident's findings and plan as documented. SUBJECTIVE: Pt seen and examined in the ICU. Pain controlled, not saying much today. Plunkett out, tolerating PO. OBJECTIVE: Vital Signs Period Temp Pulse Resp BP Sys/Rueda Pulse Ox Last 24 Hr 98.0 F-99.7 F 70-103 10-23 85-129/56-83 93 Intake & Output 01/14/19 01/15/19 01/16/19 01/17/19 23:59 23:59 23:59 23:59 Intake Total 1250 3110 700 Output Total 250 3300 600 Balance 1000 -190 100 Weight 84.323 kg 80.995 kg Gen: NAD in chair Heart: RRR Lung: decreased breath sounds at the bases Abd: soft, nontender Ext: no edema CBC, BMP 01/17/19 06:00 01/17/19 05:46 Active Medications Acetaminophen (Ofirmev Injection -) 1,000 mg IVPB Q8H PRN PRN Reason: PAIN 1-5;IF OXYCODONE NT WORK Last Admin: 01/17/19 07:47 Dose: 1,000 mg Albuterol Sulfate (Ventolin Hfa Inhaler -) 1 puff IH Q4H PRN PRN Reason: SHORTNESS OF BREATH Atorvastatin Calcium (Lipitor -) 10 mg PO HS [facility] Last Admin: 01/16/19 21:06 Dose: 10 mg Clonazepam (Klonopin -) 1 mg PO Q24H PRN PRN Reason: DEPRESSION Clonazepam (Klonopin -) 2 mg PO Q24H PRN PRN Reason: DEPRESSION Last Admin: 01/17/19 07:47 Dose: 2 mg Dexamethasone Sodium Phosphate (Decadron Injection -) 4 mg IVPUSH ONCE PRN PRN Reason: NAUSEA AND/OR VOMITING Diphenhydramine HCl (Benadryl Injection -) 12.5 mg IVPUSH ONCE PRN PRN Reason: FOR ITCHING Docusate Sodium (Colace Liquid -) 100 mg PO BID [facility] Last Admin: 01/17/19 09:05 Dose: 100 mg Sodium Chloride (Normal Saline -) 500 mls @ 500 mls/hr IV ASDIR STA Stop: 01/17/19 12:14 Last Admin: 01/17/19 11:23 Dose: 500 mls/hr Lisinopril (Prinivil) 10 mg PO DAILY [facility] Last Admin: 01/17/19 09:05 Dose: 10 mg Non-Formulary Medication (Fluticasone/Vilanterol [Breo Ellipta 100-25 Mcg Inh]) 1 each IH DAILY [facility] Non-Formulary Medication (Lifitegrast [Xiidra]) 1 each OU BID [facility] Ondansetron HCl (Zofran Injection) 4 mg IVPUSH Q6H PRN PRN Reason: NAUSEA AND/OR VOMITING Ondansetron HCl (Zofran Injection) 4 mg IVPUSH Q4H PRN PRN Reason: NAUSEA AND/OR VOMITING Oxycodone HCl (Roxicodone -) 5 mg PO Q4H PRN PRN Reason: PAIN LEVEL 1-5 Last Admin: 01/17/19 07:42 Dose: 5 mg Oxycodone HCl (Roxicodone -) 10 mg PO Q4H PRN PRN Reason: PAIN LEVEL 6-10 Last Admin: 01/17/19 06:56 Dose: 10 mg Prednisolone Acetate (Pred Forte 1% -) 1 drop OU DAILY [facility] Last Admin: 01/17/19 09:07 Dose: 1 drop Ranitidine HCl (Zantac -) 150 mg PO HS [facility] Last Admin: 01/16/19 21:06 Dose: 150 mg Sertraline HCl (Zoloft -) 100 mg PO DAILY [facility] Last Admin: 01/17/19 09:05 Dose: 100 mg Tizanidine HCl (Tizanidine Hcl) 4 mg PO HS [facility] Last Admin: 01/16/19 22:00 Dose: 4 mg Zolpidem Tartrate (Ambien -) 10 mg PO HS PRN PRN Reason: INSOMNIA Last Admin: 01/16/19 21:06 Dose: 10 mg ASSESSMENT AND PLAN: Cervical Stenosis with Radiculopathy and Myelopathy s/p C3-C4, C4-C5 ACDF HTN Hyperlipidemia COPD - pain control - incentive spirometry - PO as tolerated - inhaled bronchodilators as needed - DVT prophylaxis - can monitor on floor
[2019-01-17] MEDS ORDERED: oxyCODONE HCL 5 MG TABLET PO PRN (14:31)
[2019-01-17] MEDS ORDERED: clonazePAM 0.5 MG TABLET PO PRN (14:31)
[2019-01-17] MEDS ORDERED: ONDANSETRON 4 MG/2 ML VIAL IVPUSH PRN ×2 (14:31)
[2019-01-17] MEDS ORDERED: ALBUTEROL SO4 8 GM HFA INHALER IH PRN (14:31)
[2019-01-17] MEDS ORDERED: clonazePAM 2 MG TABLET PO PRN (14:31)
[2019-01-17] MEDS ORDERED: ACETAMINOPHEN 1000 MG/100 ML VIAL (NON FORMULARY) IVPB PRN (14:31)
--- NOTE | 2019-01-17 16:50 | PN ---
Progress Note, Physician Chief Complaint: neck pain - Current Medication List Current Medications: Active Medications Acetaminophen (Ofirmev Injection -) 1,000 mg IVPB Q8H PRN PRN Reason: PAIN 1-5;IF OXYCODONE NT WORK Albuterol Sulfate (Ventolin Hfa Inhaler -) 1 puff IH Q4H PRN PRN Reason: SHORTNESS OF BREATH Atorvastatin Calcium (Lipitor -) 10 mg PO HS [facility] Clonazepam (Klonopin -) 1 mg PO Q24H PRN PRN Reason: DEPRESSION Clonazepam (Klonopin -) 2 mg PO Q24H PRN PRN Reason: DEPRESSION Diphenhydramine HCl (Benadryl Injection -) 12.5 mg IVPUSH ONCE PRN PRN Reason: FOR ITCHING Docusate Sodium (Colace Liquid -) 100 mg PO BID [facility] Lisinopril (Prinivil) 10 mg PO DAILY [facility] Non-Formulary Medication (Fluticasone/Vilanterol [Breo Ellipta 100-25 Mcg Inh]) 1 each IH DAILY [facility] Non-Formulary Medication (Lifitegrast [Xiidra]) 1 each OU BID [facility] Ondansetron HCl (Zofran Injection) 4 mg IVPUSH Q6H PRN PRN Reason: NAUSEA AND/OR VOMITING Oxycodone HCl (Roxicodone -) 5 mg PO Q4H PRN PRN Reason: PAIN LEVEL 1-5 Last Admin: 01/17/19 14:59 Dose: 5 mg Oxycodone HCl (Roxicodone -) 10 mg PO Q4H PRN PRN Reason: PAIN LEVEL 6-10 Prednisolone Acetate (Pred Forte 1% -) 1 drop OU DAILY [facility] Ranitidine HCl (Zantac -) 150 mg PO HS [facility] Sertraline HCl (Zoloft -) 100 mg PO DAILY [facility] Tizanidine HCl (Tizanidine Hcl) 4 mg PO HS [facility] Zolpidem Tartrate (Ambien -) 10 mg PO HS PRN PRN Reason: INSOMNIA - Objective Vital Signs: Vital Signs Temperature 98.0 F 01/17/19 10:00 Pulse Rate 75 01/17/19 12:00 Respiratory Rate 15 01/17/19 12:00 Blood Pressure 102/66 01/17/19 12:00 O2 Sat by Pulse Oximetry (%) 93 L 01/17/19 09:00 Constitutional: Yes: Well Nourished, No Distress, Calm Eyes: Yes: WNL HENT: Yes: WNL Neck: Yes: WNL Cardiovascular: Yes: WNL, Regular Rate and Rhythm Respiratory: Yes: WNL, Regular, CTA Bilaterally Gastrointestinal: Yes: WNL, Normal Bowel Sounds ...Rectal Exam: Yes: Deferred Genitourinary: Yes: WNL Musculoskeletal: Yes: WNL, Other (neck pain at surgical site) Extremities: Yes: WNL Edema: No Peripheral Pulses WNL: Yes Integumentary: Yes: WNL Wound/Incision: Yes: Clean/Dry, Well Approximated Neurological: Yes: WNL Labs: CBC, BMP 01/17/19 06:00 01/17/19 05:46 Assessment/Plan A/P: -63 yo lady with C3-C4, C4-C5 intervertebral disc disorder with radiculopathy. multi level cervical stenosis with myelopathy. S/P C3-C4, C4-C5 ACDF surgical f/u appreciated. cont pain management , incentive spirometry. strict I&O's. -leucocytosis: reactive to pain. will monitor for now. -GI, DVT prophylaxis. -H/O asthma, COPD: former smoker. smoking avoidance encouraged. cont bronchodilators. keep O2>92% -cont clonazepam, sertraline for major anxiety and depression. controlled. -HTN: on lisinopril, -ID: on cefazolin for empiric coverage. -insomnia: cont zolpidem. -nausea: improved with promethazine, ondasteron -HLD: cont lipitor -PT/OT as tolerated -advance diet as tolerated -assessment and plan discussed with Pt and medical staff. doing well on medical floor. DC to rehab tomorrow if possible.
[2019-01-17] MEDS ORDERED: PATIENT'S OWN MEDICATION (NON-FORMULARY) (Lifitegrast [Xiidra] 1 EACH) OU SCH (22:00)
[2019-01-17] MEDS: ZOLPIDEM TARTRATE 5 MG TABLET PO PRN (22:17)
[2019-01-17] MEDS: ATORVASTATIN CA 10 MG TABLET (FP) PO SCH (22:18)
[2019-01-17] MEDS: RANITIDINE HCL 150 MG TABLET (FP) PO SCH (22:18)
[2019-01-17] MEDS: TIZANIDINE HCL 4 MG TABLET PO SCH (23:10)
[2019-01-18] MEDS: oxyCODONE HCL 5 MG TABLET PO PRN ×3 (05:19→17:53)
[2019-01-18] MEDS ORDERED: PT OWN MED DRAWER 7, Y5N ONE ×2 (06:49→21:12)
[2019-01-18 07:57] LABS: HEMATOCRIT 37.2 % (32.4-45.2); MCH 29.2 pg (25.7-33.7); MCHC 32.1 g/dl (32.0-36.0); MEAN CELL VOLUME 90.7 fl (80-96); MEAN PLT VOLUME 11.4 fl (7.5-11.1); PLATELET COUNT 211 K/MM3 (134-434); RDW 14.6 % (11.6-15.6); WHITE BLOOD COUNT 7.7 K/mm3 (4.0-10.0)
[2019-01-18 08:23] LABS: CALCIUM 8.6 mg/dL (8.5-10.1); CREATININE 0.7 mg/dL (0.55-1.3); MAGNESIUM 2.3 mg/dL (1.8-2.4); PHOSPHOROUS 4.2 mg/dL (2.5-4.9); POTASSIUM 3.9 mmol/L (3.5-5.1)
[2019-01-18] MEDS: prednisoLONE ACETATE 1% OPHTH SUSP 5 ML BOTTLE OU SCH ×2 (08:57→10:57)
[2019-01-18] MEDS: PATIENT'S OWN MEDICATION (NON-FORMULARY) (Lifitegrast [Xiidra] 1 EACH) OU SCH ×2 (09:00→11:17)
[2019-01-18] MEDS: SERTRALINE HCL 50 MG TABLET (FP) PO SCH (10:55)
[2019-01-18] MEDS: LISINOPRIL 10 MG TABLET (FP) PO SCH (10:56)
[2019-01-18] MEDS: DOCUSATE NA 100 MG/10 ML UNIT-DOSE CUPS PO SCH ×2 (10:57→21:59)
--- NOTE | 2019-01-18 12:17 | DS ---
Physical Examination Vital Signs: Vital Signs Temperature 98.6 F 01/18/19 09:07 Pulse Rate 73 01/18/19 09:07 Respiratory Rate 18 01/18/19 09:07 Blood Pressure 103/60 01/18/19 09:07 O2 Sat by Pulse Oximetry (%) 93 L 01/17/19 21:00 Constitutional: Yes: Well Nourished, No Distress, Calm Eyes: Yes: WNL, Conjunctiva Clear, EOM Intact HENT: Yes: WNL, Atraumatic, Normocephalic Neck: Yes: WNL, Supple, Trachea Midline, Rigid (collar in place) Cardiovascular: Yes: WNL Respiratory: Yes: WNL Gastrointestinal: Yes: WNL ...Rectal Exam: Yes: Deferred Renal/: Yes: WNL Breast(s): Yes: WNL Musculoskeletal: Yes: WNL Extremities: Yes: WNL Edema: No Neurological: Yes: WNL Labs: CBC, BMP 01/18/19 06:40 01/18/19 06:40 Discharge Summary Reason For Visit: CERVICAL DISC DISORDER Current Active Problems Asthma (Acute) Cervical disc disease with myelopathy (Acute) HTN (hypertension) (Acute) S/P discectomy (Acute) Hospital Course: -63 yo lady with C3-C4, C4-C5 intervertebral disc disorder with radiculopathy. multi level cervical stenosis with myelopathy. S/P C3-C4, C4-C5 ACDF surgical f/u appreciated. cont pain management , incentive spirometry. strict I&O's. -leucocytosis: reactive to pain. will monitor for now. -GI, DVT prophylaxis. -H/O asthma, COPD: former smoker. smoking avoidance encouraged. cont bronchodilators. keep O2>92% -cont clonazepam, sertraline for major anxiety and depression. controlled. -HTN: on lisinopril, -ID: on cefazolin for empiric coverage. -insomnia: cont zolpidem. -nausea: improved with promethazine, ondasteron -HLD: cont lipitor Condition: Good - Instructions Diet, Activity, Other Instructions: regular diet Disposition: LONGTERM FACILITY - Home Medications Comprehensive Discharge Medication List: Ambulatory Orders Albuterol Sulfate Inhaler - [Ventolin HFA Inhaler -] 1 puff IH DAILY 01/11/19 Clonazepam 1 - 2 mg PO PRN PRN 01/11/19 Fluticasone/Vilanterol [Breo Ellipta 100-25 Mcg INH] 1 each IH DAILY 01/11/19 Gabapentin 100 mg PO HS 01/11/19 Lifitegrast [Xiidra] 1 each OU BID 01/11/19 Pravastatin Sodium [Pravachol -] 40 mg PO HS 01/11/19 Prednisolone 1% Ophthalmic [Pred Forte 1% -] 1 ml OU DAILY 01/11/19 Pregabalin [Lyrica] 100 mg PO DAILY 01/11/19 Ranitidine [Zantac -] 150 mg PO HS 01/11/19 Sennosides [Senna -] 2 tab PO DAILY 01/11/19 Sertraline HCl [Zoloft] 100 mg PO DAILY 01/11/19 Tizanidine HCl 4 mg PO HS 01/11/19 Zolpidem Tartrate [Ambien] 10 mg PO HS 01/11/19 Lisinopril 10 mg PO DAILY 01/15/19
[2019-01-18] MEDS: TIZANIDINE HCL 4 MG TABLET PO SCH (21:59)
[2019-01-18] MEDS: RANITIDINE HCL 150 MG TABLET (FP) PO SCH (21:59)
[2019-01-18] MEDS: ATORVASTATIN CA 10 MG TABLET (FP) PO SCH (21:59)
[2019-01-18] MEDS: ZOLPIDEM TARTRATE 5 MG TABLET PO PRN (22:16)
[2019-01-19] MEDS: oxyCODONE HCL 5 MG TABLET PO PRN ×3 (06:42→14:32)
--- NOTE | 2019-01-19 08:09 | PN ---
Progress Note, Physician Chief Complaint: neck pain - Current Medication List Current Medications: Active Medications Albuterol Sulfate (Ventolin Hfa Inhaler -) 1 puff IH Q4H PRN PRN Reason: SHORTNESS OF BREATH Atorvastatin Calcium (Lipitor -) 10 mg PO HS [facility] Last Admin: 01/18/19 21:59 Dose: 10 mg Clonazepam (Klonopin -) 1 mg PO Q24H PRN PRN Reason: DEPRESSION Last Admin: 01/18/19 13:42 Dose: 1 mg Clonazepam (Klonopin -) 2 mg PO Q24H PRN PRN Reason: DEPRESSION Diphenhydramine HCl (Benadryl Injection -) 12.5 mg IVPUSH ONCE PRN PRN Reason: FOR ITCHING Docusate Sodium (Colace Liquid -) 100 mg PO BID [facility] Last Admin: 01/18/19 21:59 Dose: 100 mg Lisinopril (Prinivil) 10 mg PO DAILY [facility] Last Admin: 01/18/19 10:56 Dose: 10 mg Non-Formulary Medication (Fluticasone/Vilanterol [Breo Ellipta 100-25 Mcg Inh]) 1 each IH DAILY [facility] Non-Formulary Medication (Lifitegrast [Xiidra]) 1 each OU BID [facility] Ondansetron HCl (Zofran Injection) 4 mg IVPUSH Q6H PRN PRN Reason: NAUSEA AND/OR VOMITING Oxycodone HCl (Roxicodone -) 5 mg PO Q4H PRN PRN Reason: PAIN LEVEL 1-5 Last Admin: 01/17/19 14:59 Dose: 5 mg Oxycodone HCl (Roxicodone -) 10 mg PO Q4H PRN PRN Reason: PAIN LEVEL 6-10 Last Admin: 01/19/19 06:42 Dose: 10 mg Prednisolone Acetate (Pred Forte 1% -) 1 drop OU DAILY [facility] Last Admin: 01/18/19 10:57 Dose: Not Given Ranitidine HCl (Zantac -) [address] [facility] Last Admin: 01/18/19 21:59 Dose: 150 mg Sertraline HCl (Zoloft -) 100 mg PO DAILY [facility] Last Admin: 01/18/19 10:55 Dose: 100 mg Tizanidine HCl (Tizanidine Hcl) [address] [facility] Last Admin: 01/18/19 21:59 Dose: 4 mg Zolpidem Tartrate (Ambien -) 10 mg PO HS PRN PRN Reason: INSOMNIA Last Admin: 01/18/19 22:16 Dose: 10 mg - Objective Vital Signs: Vital Signs Temperature 98.9 F 01/19/19 06:00 Pulse Rate 86 01/19/19 06:00 Respiratory Rate 20 01/19/19 06:00 Blood Pressure 129/90 01/19/19 06:00 O2 Sat by Pulse Oximetry (%) 97 01/18/19 21:00 Constitutional: Yes: Well Nourished, Anxious Eyes: Yes: WNL HENT: Yes: WNL Neck: Yes: WNL Cardiovascular: Yes: WNL Respiratory: Yes: WNL Gastrointestinal: Yes: WNL ...Rectal Exam: Yes: Deferred Genitourinary: Yes: WNL Musculoskeletal: Yes: Back Pain Extremities: Yes: WNL Edema: No Wound/Incision: Yes: Clean/Dry, Well Approximated Neurological: Yes: WNL Labs: CBC, BMP 01/18/19 06:40 01/18/19 06:40 Assessment/Plan A/P: -63 yo lady with C3-C4, C4-C5 intervertebral disc disorder with radiculopathy. multi level cervical stenosis with myelopathy. S/P C3-C4, C4-C5 ACDF surgical f/u appreciated. cont pain management. incentive spirometry. strict I&O's. -GI, DVT prophylaxis. -H/O asthma, COPD: former smoker. smoking avoidance encouraged. cont bronchodilators. keep O2>92% -cont clonazepam, sertraline for major anxiety and depression. -HTN: on lisinopril, -ID: on cefazolin for empiric coverage. -insomnia: cont zolpidem. -nausea: improved with promethazine, ondasteron -HLD: cont lipitor -PT/OT as tolerated -advance diet as tolerated -assessment and plan discussed with Pt and medical staff. doing well on medical floor. awaiting rehab placement.
[2019-01-19] MEDS: LISINOPRIL 10 MG TABLET (FP) PO SCH (10:30)
[2019-01-19] MEDS: SERTRALINE HCL 50 MG TABLET (FP) PO SCH (10:31)
[2019-01-19] MEDS: prednisoLONE ACETATE 1% OPHTH SUSP 5 ML BOTTLE OU SCH (10:32)
[2019-01-19] MEDS: DOCUSATE NA 100 MG/10 ML UNIT-DOSE CUPS PO SCH (10:32)
[2019-01-19 15:24] VITALS: BP 116/76; PULSE 96; TEMP 98.2
== END 2019-01-19 15:20 | DRG 321 ==
LOC: JSAMEDAYSX 06:30 → JICU 12:07 → J8W 01-17 14:17
PROVIDERS: ADMIT Orthopaedic Surgery Orthopaedic Surgery of the Spine; ATTEND Orthopaedic Surgery Orthopaedic Surgery of the Spine
PROC: 0RG20A0 Fusion of 2 or more Cervical Vertebral Joints with Interbody Fusion Device, Anterior Approach, Anterior Column, Open Approach (ICD-10-PCS; 2019-01-15)
PROC: 0RG20K0 Fusion of 2 or more Cervical Vertebral Joints with Nonautologous Tissue Substitute, Anterior Approach, Anterior Column, Open Approach (ICD-10-PCS; 2019-01-15)
PROC: 0RB30ZZ Excision of Cervical Vertebral Disc, Open Approach (ICD-10-PCS; 2019-01-15)
PROC: 00NW0ZZ Release Cervical Spinal Cord, Open Approach (ICD-10-PCS; 2019-01-15)
PROC: 0RB30ZZ Excision of Cervical Vertebral Disc, Open Approach (ICD-10-PCS; principal; 2019-01-15 08:00)
DX: M50.121 Cervical disc disorder at C4-C5 level with radiculopathy (principal); M50.01 Cervical disc disorder with myelopathy, high cervical region; M48.02 Spinal stenosis, cervical region; I10 Essential (primary) hypertension; E78.5 Hyperlipidemia, unspecified; J45.909 Unspecified asthma, uncomplicated; G47.00 Insomnia, unspecified; F41.8 Other specified anxiety disorders; D72.829 Elevated white blood cell count, unspecified; J44.9 Chronic obstructive pulmonary disease, unspecified; R11.0 Nausea; I95.9 Hypotension, unspecified; Z87.891 Personal history of nicotine dependence
CPT/HCPCS: 36415; 72050-TC-FY; 76000-TC-FY; 80048; 81003; 83735; 84100; 85027; 86850; 86900; 86901; 88304-TC; 93005; 93010; 97116-GP; 97162-GP; J0131; J1644